=== PATIENT | male | born 1960 | race Caucasian/White ===

== ENCOUNTER 2017-11-04 09:38 | Emergency (ER) | payer MEDICARE ==
[~2017-11-04] VITALS: Ht 177.8 cm; Wt 158.0 kg
[2017-11-04] MEDS ORDERED: CLIN-79 PO (10:51)
[2017-11-04 11:12] VITALS: BP 132/54
== END 2017-11-04 11:17 | disposition home or self-care (01) ==
LOC: ER 09:38
DX: J32.9 Chronic sinusitis, unspecified (principal); H53.8 Other visual disturbances; E11.9 Type 2 diabetes mellitus without complications; Z79.82 Long term (current) use of aspirin; Z88.1 Allergy status to other antibiotic agents; Z88.2 Allergy status to sulfonamides; Z88.8 Allergy status to other drugs, medicaments and biological substances
CPT/HCPCS: 99283

== ENCOUNTER 2017-11-18 14:09 | Emergency (ER) | payer MEDICARE ==
[~2017-11-18] VITALS: Ht 177.8 cm; Wt 157.3 kg
[~2017-11-18 14:09] MED LIST: CLIN-79 PO
[2017-11-18 14:11] VITALS: BP 109/69
[2017-11-18] MEDS ORDERED: FLUC150T66 PO (15:44)
[2017-11-18] MEDS ORDERED: DOXY100C43 PO (15:44)
[2017-11-18] MEDS ORDERED: BENZ-16 PO (15:44)
[2017-11-18] MEDS ORDERED: CLOT15CR73 TP (15:44)
[2017-11-18] MEDS ORDERED: GUAI1TBM19 PO (15:44)
== END 2017-11-18 15:52 | disposition home or self-care (01) ==
LOC: ER 14:09
DX: J32.0 Chronic maxillary sinusitis (principal); R22.1 Localized swelling, mass and lump, neck; B35.4 Tinea corporis; E11.9 Type 2 diabetes mellitus without complications; Z88.1 Allergy status to other antibiotic agents; Z88.2 Allergy status to sulfonamides; Z79.899 Other long term (current) drug therapy
CPT/HCPCS: 71046; 99284

== ENCOUNTER 2017-11-28 09:28 | Emergency (ER) | payer MEDICARE ==
[~2017-11-28] VITALS: Ht 177.8 cm; Wt 155.0 kg
[~2017-11-28 09:28] MED LIST changes: +BENZ-16 PO; +CLOT15CR73 TP; +DOXY100C43 PO; +FLUC150T66 PO; +GUAI1TBM19 PO
[2017-11-28 10:54] LABS: BASOPHILS # (AUTO) 0.1 X10'3 (0-0.2); BASOPHILS % (AUTO) 0.7 % (0-1); EOSINOPHILS # (AUTO) 0.2 X10'3 (0-0.9); EOSINOPHILS % (AUTO) 1.8 % (0-6); HEMATOCRIT 38.4 % (42.0-52.0); HEMOGLOBIN 13.1 g/dl (14.0-17.9); LYMPHOCYTES # (AUTO) 2.4 X10'3 (1.1-4.8); MEAN CORPUSCULAR HEMOGLOBIN 29.8 PG (27.0-31.0); MEAN CORPUSCULAR HGB CONC 34.1 % (33.0-36.5); MEAN CORPUSCULAR VOLUME 87.4 FL (78-98); MEAN PLATELET VOLUME 6.6 FL (7.4-10.4); MONOCYTES # (AUTO) 0.6 X10'3 (0-0.9); MONOCYTES % (AUTO) 6.8 % (2-12); NEUTROPHILS % (AUTO) 64.7 % (42-75); PLATELET COUNT 330 X10'3 (140-440); RED BLOOD COUNT 4.39 X10'6 (4.70-6.10); RED CELL DISTRIBUTION WIDTH 14.8 % (11.5-14.5); WHITE BLOOD COUNT 9.3 X10'3 (4.5-11.0)
[2017-11-28 11:05] LABS: ALANINE AMINOTRANSFERASE 38 U/L (12-78); ALBUMIN 3.6 G/DL (3.4-5.0); ALKALINE PHOSPHATASE 68 IU/L (46-116); ANION GAP 7 (8-16); ASPARTATE AMINO TRANSFERASE 23 U/L (10-37); BILIRUBIN,TOTAL 0.4 MG/DL (0.1-1.0); BLOOD UREA NITROGEN 22 MG/DL (7-18); BUN/CREATININE RATIO 16.3 (5.4-32.0); CALCIUM 8.7 MG/DL (8.5-10.1); CHLORIDE 106 MMOL/L (99-107); CREATININE 1.35 MG/DL (0.60-1.10); POTASSIUM 3.7 MMOL/L (3.5-5.1); SODIUM 145 MMOL/L (135-145); TOTAL CARBON DIOXIDE 31.9 MMOL/L (24-32); TOTAL PROTEIN 7.3 G/DL (6.4-8.2); eGFR 54 ML/MIN
[2017-11-28 11:07] LABS: GLUCOSE 46 MG/DL (70-104)
[2017-11-28 12:27] VITALS: BP 109/68
[2017-11-28] MEDS ORDERED: AMOX-422 PO (12:28)
== END 2017-11-28 12:30 | disposition home or self-care (01) ==
LOC: ER 09:29
DX: R59.1 Generalized enlarged lymph nodes (principal); E11.9 Type 2 diabetes mellitus without complications; Z88.2 Allergy status to sulfonamides; Z79.899 Other long term (current) drug therapy
CPT/HCPCS: 36415; 70490; 71045; 80053; 85025; 99285; J7030

== ENCOUNTER 2018-05-12 16:09 | Emergency (ER) | payer MEDICARE ==
[~2018-05-12] VITALS: Ht 177.8 cm; Wt 137.0 kg
[~2018-05-12 16:09] MED LIST changes: -BENZ-16 PO; -CLIN-79 PO; +CLIN150C8 PO; -DOXY100C43 PO; -FLUC150T66 PO
[2018-05-12 16:18] VITALS: BP 127/72
[2018-05-12] MEDS ORDERED: MECL12.584 PO (17:47)
== END 2018-05-12 17:57 | disposition home or self-care (01) ==
LOC: ER 16:10
DX: H81.02 Meniere's disease, left ear (principal); E11.9 Type 2 diabetes mellitus without complications; Z85.89 Personal history of malignant neoplasm of other organs and systems; Z88.2 Allergy status to sulfonamides; Z88.8 Allergy status to other drugs, medicaments and biological substances; Z88.1 Allergy status to other antibiotic agents; Z79.899 Other long term (current) drug therapy
CPT/HCPCS: 99282

== ENCOUNTER 2018-11-29 07:18 | Emergency (ER) | payer MEDICARE ==
[~2018-11-29] VITALS: Ht 177.8 cm; Wt 135.4 kg
[~2018-11-29 07:18] MED LIST changes: +MECL12.584 PO
[2018-11-29] MEDS ORDERED: aspirin 81mg tab.chew PO ONE (07:50)
[2018-11-29] MEDS ORDERED: ketorolac trometh inj. 60 MG/2 ML VIAL IM ONE (07:50)
[2018-11-29 08:18] LABS: CLARITY,URINE CLEAR (Clear); COLOR,URINE YELLOW (Yellow); GLUCOSE, URINE NEGATIVE (Neg); KETONES,URINE NEGATIVE (Neg); LEUKOCYTE ESTERASE ,URINE NEGATIVE (Neg); NITRITES, URINE NEGATIVE (Neg); OCCULT BLOOD,URINE MODERATE (Neg); PH,URINE 5.5 (4.8-8.0); PROTEIN,URINE 100 mg/dl (Neg); UROBILINOGEN,URINE 0.2 E.U/dL (0.2-1.0)
[2018-11-29 08:28] LABS: URINE AMPHETAMINE SCREEN NEGATIVE (Neg); URINE BARBITUATE SCREEN NEGATIVE (Neg); URINE BENZODIAZEPINES SCREEN NEGATIVE (Neg); URINE CANNABINOID SCREEN NEGATIVE (Neg); URINE COCAINE SCREEN NEGATIVE (Neg); URINE METHADONE SCREEN NEGATIVE (Neg); URINE OPIATE SCREEN POSITIVE (Neg); URINE PHENCYCLIDINE SCREEN NEGATIVE (Neg)
[2018-11-29 08:32] LABS: UA COLLECTION TYPE CLN CATCH MIDSTREAM
[2018-11-29 08:33] LABS: SQUAMOUS EPITHELIAL CELL,UR FEW /LPF (FEW)
[2018-11-29 08:34] LABS: BACTERIA,URINE FEW /HPF (Neg); WBC,URINE 0-4 /HPF (0-4)
[2018-11-29 09:12] LABS: BASOPHILS % (AUTO) 0.7 % (0-1); EOSINOPHILS # (AUTO) 0.2 X10'3 (0-0.9); EOSINOPHILS % (AUTO) 3.3 % (0-6); HEMATOCRIT 33.4 % (42.0-52.0); HEMOGLOBIN 11.5 g/dl (14.0-17.9); LYMPHOCYTES # (AUTO) 0.7 X10'3 (1.1-4.8); LYMPHOCYTES % (AUTO) 13.3 % (21-51); MEAN CORPUSCULAR HEMOGLOBIN 31.8 PG (27.0-31.0); MEAN CORPUSCULAR HGB CONC 34.3 g/dL (33.0-36.5); MEAN CORPUSCULAR VOLUME 92.8 FL (78-98); MEAN PLATELET VOLUME 6.1 FL (7.4-10.4); MONOCYTES # (AUTO) 0.5 X10'3 (0-0.9); MONOCYTES % (AUTO) 8.9 % (2-12); NEUTROPHILS # (AUTO) 3.8 X10'3 (1.8-7.7); NEUTROPHILS % (AUTO) 73.8 % (42-75); PLATELET COUNT 231 X10'3 (140-440); RED CELL DISTRIBUTION WIDTH 13.9 % (11.5-14.5); WHITE BLOOD COUNT 5.1 X10'3 (4.5-11.0)
[2018-11-29 09:24] VITALS: BP 153/91
[2018-11-29 09:26] LABS: ALANINE AMINOTRANSFERASE 18 U/L (12-78); ALBUMIN 3.5 G/DL (3.4-5.0); ALKALINE PHOSPHATASE 105 IU/L (46-116); ANION GAP 8 (8-16); ASPARTATE AMINO TRANSFERASE 15 U/L (10-37); BILIRUBIN,TOTAL 0.2 MG/DL (0.1-1.0); BLOOD UREA NITROGEN 11 MG/DL (7-18); BUN/CREATININE RATIO 11.6 (5.4-32.0); CALCIUM 8.6 MG/DL (8.5-10.1); CHLORIDE 104 MMOL/L (99-107); CREATININE 0.95 MG/DL (0.60-1.10); GLUCOSE 105 MG/DL (70-104); MAGNESIUM 1.7 MG/DL (1.5-2.4); POTASSIUM 3.3 MMOL/L (3.5-5.1); SODIUM 141 MMOL/L (135-145); TOTAL CARBON DIOXIDE 28.7 MMOL/L (24-32); eGFR 81 ML/MIN
[2018-11-29 09:34] LABS: D-DIMER < 0.19 MG/L FEU (0-0.50)
[2018-11-29] MEDS ORDERED: AMOX500C2 PO (09:39)
[2018-11-29] MEDS ORDERED: amoxicillin 250mg capsule PO ONE (09:40)
== END 2018-11-29 09:53 | disposition home or self-care (01) ==
LOC: ER 07:19
DX: R22.0 Localized swelling, mass and lump, head (principal); R51 Headache; R31.9 Hematuria, unspecified; M54.2 Cervicalgia; M54.9 Dorsalgia, unspecified; M25.512 Pain in left shoulder; E11.9 Type 2 diabetes mellitus without complications; Z79.899 Other long term (current) drug therapy; Z88.2 Allergy status to sulfonamides; Z88.1 Allergy status to other antibiotic agents
CPT/HCPCS: 36415; 71045; 80053; 80305; 81001; 83735; 84484; 85025; 85379; 93005; 96372; 99284; J1885

== ENCOUNTER 2018-12-04 07:17 | Emergency (ER) | payer MEDICARE ==
[~2018-12-04] VITALS: Ht 177.8 cm; Wt 296.0 kg
[~2018-12-04 07:17] MED LIST changes: +AMOX500C2 PO
[2018-12-04] MEDS ORDERED: morphine 4 MG/ML inj SYRINge IV PRN (07:45)
[2018-12-04] MEDS ORDERED: ondansetron/PF 4mg/2ml inj IV ONE (07:45)
[2018-12-04 08:17] LABS: BASOPHILS % (AUTO) 0.7 % (0-1); EOSINOPHILS # (AUTO) 0.2 X10'3 (0-0.9); EOSINOPHILS % (AUTO) 2.7 % (0-6); HEMATOCRIT 36.1 % (42.0-52.0); HEMOGLOBIN 12.5 g/dl (14.0-17.9); LYMPHOCYTES # (AUTO) 0.8 X10'3 (1.1-4.8); LYMPHOCYTES % (AUTO) 11.9 % (21-51); MEAN CORPUSCULAR HGB CONC 34.6 g/dL (33.0-36.5); MEAN CORPUSCULAR VOLUME 92.3 FL (78-98); MEAN PLATELET VOLUME 7.1 FL (7.4-10.4); MONOCYTES # (AUTO) 0.6 X10'3 (0-0.9); MONOCYTES % (AUTO) 8.4 % (2-12); NEUTROPHILS # (AUTO) 5.1 X10'3 (1.8-7.7); NEUTROPHILS % (AUTO) 76.3 % (42-75); PLATELET COUNT 231 X10'3 (140-440); RED BLOOD COUNT 3.92 X10'6 (4.70-6.10); RED CELL DISTRIBUTION WIDTH 13.8 % (11.5-14.5); WHITE BLOOD COUNT 6.7 X10'3 (4.5-11.0)
[2018-12-04] MEDS ORDERED: iohexol 300mg/ml 100ml inj. ONE (08:19)
--- NOTE | 2018-12-04 08:35 | NUR ---
pt out to [place] via wheelchair with electrical controls assembler
[2018-12-04 10:01] LABS: PROTHROMBIN TIME 39.5 SECONDS (9.0-12.0)
[2018-12-04 10:03] LABS: INR 4.2 INR
[2018-12-04 10:25] LABS: ALANINE AMINOTRANSFERASE 20 U/L (12-78); ALBUMIN 3.3 G/DL (3.4-5.0); ALKALINE PHOSPHATASE 91 IU/L (46-116); ANION GAP 8 (8-16); ASPARTATE AMINO TRANSFERASE 17 U/L (10-37); BILIRUBIN,TOTAL 0.3 MG/DL (0.1-1.0); BLOOD UREA NITROGEN 15 MG/DL (7-18); BUN/CREATININE RATIO 15.8 (5.4-32.0); CALCIUM 8.5 MG/DL (8.5-10.1); CHLORIDE 102 MMOL/L (99-107); CREATININE 0.95 MG/DL (0.60-1.10); GLUCOSE 124 MG/DL (70-104); POTASSIUM 3.2 MMOL/L (3.5-5.1); SODIUM 138 MMOL/L (135-145); TOTAL CARBON DIOXIDE 27.6 MMOL/L (24-32); TOTAL PROTEIN 6.6 G/DL (6.4-8.2); eGFR 81 ML/MIN
[2018-12-04] MEDS ORDERED: orphenadrine citrate 60mg/2ml inj. IM ONE (10:50)
[2018-12-04] MEDS ORDERED: HYDROcodone/acetaminophen 10/325mg tab PO ONE (10:50)
[2018-12-04] MEDS ORDERED: ORPH100T2 PO (10:52)
[2018-12-04] MEDS ORDERED: HYDR-4353 PO (10:52)
[2018-12-04 11:16] VITALS: BP 175/88
== END 2018-12-04 11:18 | disposition home or self-care (01) ==
LOC: ER 07:18
DX: M54.89 Other dorsalgia (principal); M25.512 Pain in left shoulder; E11.9 Type 2 diabetes mellitus without complications; Z88.1 Allergy status to other antibiotic agents; Z88.8 Allergy status to other drugs, medicaments and biological substances; Z79.899 Other long term (current) drug therapy; Z79.01 Long term (current) use of anticoagulants
CPT/HCPCS: 36415; 80053; 85025; 85610; 96372; 96374; 96375; 99284; J2270; J2360; J2405; Q9967

== ENCOUNTER 2019-05-06 09:38 | Emergency (ER) | payer MEDICARE ==
[~2019-05-06] VITALS: Ht 203.2 cm; Wt 127.7 kg
[~2019-05-06 09:38] MED LIST changes: -AMOX500C2 PO; +ORPH100T2 PO
[2019-05-06] MEDS ORDERED: LIDOcaine 5% patch TP STA (10:14)
[2019-05-06] MEDS ORDERED: morphine 4 MG/ML inj SYRINge IV ONE (10:15)
[2019-05-06] MEDS ORDERED: ondansetron 4mg rapidly disintigrating tab PO ONE (10:15)
[2019-05-06] MEDS ORDERED: dexamethasone sod phosphate 10mg/ml inj IM STA (10:16)
[2019-05-06 11:47] VITALS: BP 140/81
== END 2019-05-06 11:49 | disposition home or self-care (01) ==
LOC: ER 09:39
DX: M54.6 Pain in thoracic spine (principal); R93.7 Abnormal findings on diagnostic imaging of other parts of musculoskeletal system; E11.9 Type 2 diabetes mellitus without complications; Z88.1 Allergy status to other antibiotic agents; Z88.2 Allergy status to sulfonamides; Z88.8 Allergy status to other drugs, medicaments and biological substances; Z79.2 Long term (current) use of antibiotics; Z79.899 Other long term (current) drug therapy; Z85.818 Personal history of malignant neoplasm of other sites of lip, oral cavity, and pharynx; Z87.448 Personal history of other diseases of urinary system
CPT/HCPCS: 93005; 96372; 99283; J1100

== ENCOUNTER 2019-05-11 04:36 | Emergency (ER) | payer MEDICARE ==
[~2019-05-11] VITALS: Ht 177.8 cm; Wt 127.3 kg
[2019-05-11 04:42] VITALS: BP 188/86
[2019-05-11] MEDS ORDERED: AMLO-94 PO (05:00)
[2019-05-11] MEDS ORDERED: LEVO500T2 PO (05:00)
[2019-05-11] MEDS ORDERED: ATOR40TA PO (05:00)
[2019-05-11] MEDS ORDERED: ISOS30TA6 PO (05:00)
[2019-05-11] MEDS ORDERED: PROC-8 PO (05:00)
[2019-05-11] MEDS ORDERED: NITR0.4T51 SL (05:00)
[2019-05-11] MEDS ORDERED: LEVO100T PO (05:00)
[2019-05-11] MEDS ORDERED: LISI40TA4 PO (05:00)
[2019-05-11] MEDS ORDERED: GENT30OI2 TOP (05:00)
[2019-05-11] MEDS ORDERED: ALLO100T PO (05:00)
[2019-05-11] MEDS ORDERED: TRAM50TA2 PO (05:00)
[2019-05-11] MEDS ORDERED: orphenadrine citrate 60mg/2ml inj. IM ONE (05:05)
[2019-05-11] MEDS ORDERED: HYDROcodone/acetaminophen 10/325mg tab PO ONE (05:05)
[2019-05-11] MEDS ORDERED: BUPIVAcaine/PF 2.5 mg/ml (0.25%) 30ml vial IJ ONE (05:05)
[2019-05-11] MEDS ORDERED: BUPIVAcaine/PF 2.5mg/ml (0.25%) 10ml vial IJ ONE (05:15)
[2019-05-11] MEDS ORDERED: LIDOcaine 1% w/EPI 1:100,000 30ml vial (MDV) ONE (09:00)
== END 2019-05-11 05:45 | disposition home or self-care (01) ==
LOC: ER 04:37
DX: G89.29 Other chronic pain (principal); M54.6 Pain in thoracic spine; E11.9 Type 2 diabetes mellitus without complications; Z79.2 Long term (current) use of antibiotics; Z79.899 Other long term (current) drug therapy
CPT/HCPCS: 20552; 96372; 99284; J2360; J3490; 99283

== ENCOUNTER 2019-05-12 05:22 | Emergency (ER) | payer MEDICARE ==
[~2019-05-12 05:22] MED LIST changes: +ALLO100T PO; +AMLO-94 PO; +ATOR40TA PO; +GENT30OI2 TOP; +ISOS30TA6 PO; +LEVO100T PO; +LEVO500T2 PO; +LISI40TA4 PO; +NITR0.4T51 SL; +PROC-8 PO; +TRAM50TA2 PO
== END 2019-05-12 05:43 | disposition left against medical advice (07) ==
LOC: ER 05:23
DX: M54.9 Dorsalgia, unspecified (principal); Z53.21 Procedure and treatment not carried out due to patient leaving prior to being seen by health care provider